=== PATIENT | male | born 1940 | race Hispanic/Latino ===

== ENCOUNTER → 2018-02-28 | Outpatient (CLI) | payer OTHER ==
[~2018-02-28] MED LIST: AEC81 PO; TYL3 PO
[2018-02-28 12:11] LABS: CREATININE 1.2 mg/dL (0.5-1.5)
== END | disposition home or self-care (01) ==
LOC: LAB 11:42
PROVIDERS: ATTEND Psychiatry & Neurology Neurology
DX: M62.50 Muscle wasting and atrophy, not elsewhere classified, unspecified site (principal)
CPT/HCPCS: 36415; 82565; 84520

== ENCOUNTER → 2018-03-03 | Outpatient (CLI) | payer OTHER ==
[~2018-03-03] MED LIST changes: +GADODIAMIDE 10 MMOL/20 ML ML IV ONE
== END | disposition home or self-care (01) ==
LOC: RAH 11:13
PROVIDERS: ATTEND Psychiatry & Neurology Neurology
DX: M25.551 Pain in right hip (principal); M25.561 Pain in right knee; M62.50 Muscle wasting and atrophy, not elsewhere classified, unspecified site
CPT/HCPCS: 72197; A9579

== ENCOUNTER → 2018-07-30 | Outpatient (CLI) | payer OTHER ==
[~2018-07-30] MED LIST changes: -GADODIAMIDE 10 MMOL/20 ML ML IV ONE
== END | disposition home or self-care (01) ==
LOC: SHCH 12:51
PROVIDERS: ATTEND Internal Medicine Cardiovascular Disease
DX: I87.2 Venous insufficiency (chronic) (peripheral) (principal); I73.9 Peripheral vascular disease, unspecified
CPT/HCPCS: 93925; 93970

== ENCOUNTER → 2020-09-16 | Outpatient (CLI) | payer OTHER | END | disposition home or self-care (01) | LOC: SHCH 11:00 | PROVIDERS: ATTEND Internal Medicine Cardiovascular Disease | DX: I73.9 Peripheral vascular disease, unspecified (principal) | CPT/HCPCS: 93925 ==

== ENCOUNTER → 2025-03-25 | Outpatient (CLI) | payer OTHER ==
[2025-03-25] MEDS: REGADENOSON 0.4 MG/5 ML PF SYG IVP ONE (11:34)
--- NOTE | 2025-03-26 08:47 | HMCSR ---
APPROVED REPORT Height: 5 ft 8in Weight: 174 lbs TEST INDICATIONS CAD The imaging protocol used to acquire images was Rest Tc-99m/stress Tc-99m 1 day Consent: The procedure was explained and understood by the patient. Informerd consent was witnessed by Nevaeh Brandt RN First, low dose rest was performed then high dose stress. RESTING DATA: The resting ekg shows: NSR Rest SPECT myocardial perfusion imaging was performed in supine position minutes following the intravenous injection of mCi of Tc-99 Sestamibi. Time of rest injection: 11:00: Date: 03/25/2025 PHARMACOLOGIC STRESS: Pharmacologic stress test was performed by injecting regadenoson 0.4 mg IV push followed by the intravenous injection of mCi of Tc-99 Sestamibi. Time of stress injection: 12:45: Date: 03/25/2025 Heart Rate at time of stress injection: 54 bpm. Gated Stress SPECT was performed 60 minutes after stress injection. The images were gated to evaluate regional wall motion and calculate left ventricular ejection fraction. STRESS DETAILS Reason for Termination: Infusion complete Stress Symptoms: Dizziness Max HR Achieved: 86 bpm % of APMHR Achieved: 73 Max Blood Pressure: 158/72 mmHg Stress ECG: NSR, PVC's Study quality was good. Lung uptake was Normal. Artifact: increased GI uptake LEFT VENTRICLE Size: The left ventricular size is normal. Systolic Function:The left ventricular systolic function is normal. Wall Motion: No regional wall motion abnormalities noted. The left ventricular ejection fraction was calculated to be 70%.TID = 0.93. LV PERFUSION There is decreased radiotracer uptake noted of mild degree involving the inferolateral segment more prominent on the rest images compared to the stress images. Conclusion Normal myocardial perfusion scan with slight rest defect inferolaterally likely related to artifact No evidence of reversible ischemia No evidence of infarct preserved ejection fraction estimated at 70% Transient ischemic dilatation ratio normal at 0.93 Low risk scan
== END | disposition home or self-care (01) ==
LOC: RAH 10:37
PROVIDERS: ATTEND Internal Medicine Cardiovascular Disease
DX: I49.3 Ventricular premature depolarization (principal); I25.10 Atherosclerotic heart disease of native coronary artery without angina pectoris
CPT/HCPCS: 78452; 93017; J2785; A9500 ×2